=== PATIENT | female | born 1945 | race Caucasian/White ===

== ENCOUNTER → 2020-02-28 | Outpatient (CLI) | payer OTHER ==
[~2020-02-28] MED LIST: AMLODIPINE BESY10 MG PO; ANTI-DIARRHEA2 MG PO; CELEXA 10 MG TA10 M1 PO; COLACE 100 MG100 MG PO; GLUCOPHAGE850 MG PO; HYDROCODON-ACE1 EAC7 PO; HYDROCODON-ACE1 EAC8 PO; MULTIVITAMINS PO; NEURONTIN 300300 M1 PO; NORCO 5-325 TA1 EACH PO; PRILOSEC40 MG PO; ROBAXIN 750 MG750 MG PO; VICODIN ES 7.51 EACH; ZESTORETIC 20-1 EAC3 PO
== END ==
LOC: SJCVC 12:32
PROVIDERS: ATTEND Internal Medicine
DX: R55 Syncope and collapse (principal); R07.9 Chest pain, unspecified; I10 Essential (primary) hypertension; E11.9 Type 2 diabetes mellitus without complications; M79.604 Pain in right leg; M79.605 Pain in left leg; Z79.899 Other long term (current) drug therapy

== ENCOUNTER → 2020-03-26 | Outpatient (CLI) | payer MEDICARE | LOC: SJCVC 09:27 | PROVIDERS: ATTEND Internal Medicine | DX: I95.1 Orthostatic hypotension (principal); I10 Essential (primary) hypertension; R07.9 Chest pain, unspecified; M79.604 Pain in right leg; M79.605 Pain in left leg; Z79.899 Other long term (current) drug therapy ==

== ENCOUNTER → 2021-09-20 | Outpatient (CLI) | payer MEDICARE | LOC: CAT 09:42 → RAD 10:22 | PROVIDERS: ATTEND Family Medicine | DX: M51.36 Other intervertebral disc degeneration, lumbar region (principal); M48.061 Spinal stenosis, lumbar region without neurogenic claudication; M25.78 Osteophyte, vertebrae ==